=== PATIENT | female | born 1965 | race Caucasian/White ===

== ENCOUNTER 2017-01-18 20:12 | Emergency (ER) | payer SELFPAY ==
[2017-01-18] MEDS ORDERED: Adenosine 6 MG/2 ML VIAL ONE (20:22)
[2017-01-18] MEDS ORDERED: Metoprolol Tartrate 5 MG/5 ML VIAL ONE (20:24)
--- NOTE | 2017-01-18 20:45 | RAD ---
CHEST ONE VIEW 01/18/17 HISTORY: Chest pain. COMPARISON: Chest one view 02/11/16. FINDINGS: The lungs are clear. No pneumothorax or effusion. The cardiac silhouette and mediastinal contours are of normal limits. IMPRESSION: No significant change. POS: [facility]
[2017-01-18 21:10] LABS: Anion Gap 21 mmol/L (10-20); BUN (Urea Nitrogen) 13 mg/dL (9.8-20.1); Calc. Creatinine Clearance 0 mL/min (70-130); Calcium 9.6 mg/dL (7.8-10.44); Carbon Dioxide 20 mmol/L (22-29); Chloride 103 mmol/L (98-107); Estimated GFR-MDRD Greater than 90; Glucose 146 mg/dL (70-105); Potassium 3.6 mmol/L (3.5-5.1); Sodium 140 mmol/L (136-145)
[2017-01-18 21:13] LABS: #Basophils 0.2 thou/uL (0.0-0.2); #Eosinphils 0.5 thou/uL (0.0-0.7); #Lymphocytes 4.9 thou/uL (1.20-3.40); #Monocytes 1.1 thou/uL (0.11-0.59); #Neutrophils 4.5 thou/uL (1.40-6.50); %Basophils 1.6 % (0.0-1.0); %Eosinophils 4.6 % (0.0-10.0); %Monocytes 9.5 % (0.0-10.0); %Neutrophils 40.3 % (42.0-75.0); Hemoglobin 12.8 g/dL (12.0-16.0); Mean Corpuscular HGB CONC 35.2 g/dL (32.0-36.0); Mean Corpuscular Hemoglobin 30.4 pg (27.0-31.0); Mean Corpuscular Volume 86.4 fl (81.0-99.0); Mean Platelet Volume 8.8 fL (7.4-10.4); Platelet Count 215 thou/uL (130-400); RBC Distribution Width 12.9 % (11.5-14.5); Red Blood Cell (RBC) Count 4.21 mill/uL (4.20-5.40); White Blood Cell (WBC) Count 11.2 thou/uL (4.8-10.8)
[2017-01-18 21:18] LABS: CKMB 0.9 ng/mL (0-6.6); Troponin I Less than 0.010 ng/mL (< 0.028)
[2017-01-18] MEDS ORDERED: Fentanyl 100 MCG/2 ML VIAL ONE (23:20)
== END 2017-01-18 21:40 | disposition home or self-care (01) ==
LOC: MADERS 20:12
DX: I47.1 Supraventricular tachycardia (principal); E11.9 Type 2 diabetes mellitus without complications; I10 Essential (primary) hypertension; Z79.84 Long term (current) use of oral hypoglycemic drugs
CPT/HCPCS: 36415; 36416; 71010; 80048; 82553; 83880; 84484; 85025; 85379; 93005; 94760; 96374; J0153; J3010

== ENCOUNTER 2017-02-20 04:04 | Emergency (ER) | payer SELFPAY ==
[2017-02-20] MEDS ORDERED: Adenosine 6 MG/2 ML VIAL ONE (04:27)
[2017-02-20] MEDS ORDERED: Aspirin 325 MG TAB ONE (04:48)
[2017-02-20 04:56] LABS: INR-International Normal Ratio 0.9; PTT 29.4 SEC (22.9-36.1); Prothrombin Time 12.3 SEC (12.0-14.7)
[2017-02-20 05:08] LABS: Mean Corpuscular Hemoglobin 29.1 pg (27.0-31.0); Mean Corpuscular Volume 88.2 fl (81.0-99.0); Mean Platelet Volume 8.9 fL (7.4-10.4); Platelet Count 259 thou/uL (130-400); RBC Distribution Width 13.4 % (11.5-14.5); Red Blood Cell (RBC) Count 4.82 mill/uL (4.20-5.40)
[2017-02-20 05:09] LABS: ALT (SGPT) 48 U/L (8-55); AST (SGOT) 42 U/L (5-34); Albumin 4.2 g/dL (3.5-5.0); Alkaline Phosphatase 64 U/L (40-150); Anion Gap 21 mmol/L (10-20); BUN (Urea Nitrogen) 13 mg/dL (9.8-20.1); Bilirubin, Total 0.6 mg/dL (0.2-1.2); CK (CPK) 124 U/L (29-168); CKMB 1.2 ng/mL (0-6.6); Calc. Creatinine Clearance 0 mL/min (70-130); Calcium 9.6 mg/dL (7.8-10.44); Carbon Dioxide 19 mmol/L (22-29); Chloride 101 mmol/L (98-107); Estimated GFR-MDRD 69; Globulin 5.1 g/dL (2.4-3.5); Glucose 355 mg/dL (70-105); MDiff Complete? YES; Potassium 3.8 mmol/L (3.5-5.1); Protein, Total 9.3 g/dL (6.0-8.3); Sodium 137 mmol/L (136-145); Troponin I Less than 0.010 ng/mL (< 0.028)
[2017-02-20] MEDS ORDERED: Insulin Regular 300 UNITS/3 ML VIAL ONE (05:20)
[2017-02-20] MEDS ORDERED: Sodium Chloride 0.9% 1,000 ML BAG ONE (07:14)
--- NOTE | 2017-02-20 07:53 | RAD ---
PORTABLE CHEST 1 VIEW: DATE: 02/20/17. TIME: 4:37 a.m. HISTORY: Chest pain. FINDINGS: Comparison is made with the exam of 01/18/17. The heart size is normal. No focal areas of consolidation, pneumothorax, or pleural effusions are se en. IMPRESSION: No acute process. POS: [facility]
== END 2017-02-20 06:20 | disposition home or self-care (01) ==
LOC: MADERS 04:04
DX: I47.1 Supraventricular tachycardia (principal); E11.9 Type 2 diabetes mellitus without complications; F32.9 Major depressive disorder, single episode, unspecified; I10 Essential (primary) hypertension; Z79.84 Long term (current) use of oral hypoglycemic drugs; Z79.899 Other long term (current) drug therapy
CPT/HCPCS: 71010; 80053; 82553; 83880; 84484; 85025; 85610; 85730; 93005; 94760; 96374; 96375; J0153; J1815; J7050

== ENCOUNTER 2017-03-09 11:33 | Emergency (ER) | payer SELFPAY ==
[~2017-03-09 11:33] MED LIST: Sodium Chloride 0.9% 1,000 ML BAG ONE
[2017-03-09] MEDS ORDERED: Adenosine 6 MG/2 ML VIAL ONE ×2 (11:48)
[2017-03-09] MEDS ORDERED: Metoprolol Tartrate 5 MG/5 ML VIAL ONE (12:04)
[2017-03-09 12:27] LABS: Anion Gap 21 mmol/L (10-20); BUN (Urea Nitrogen) 17 mg/dL (9.8-20.1); Calc. Creatinine Clearance 0 mL/min (70-130); Calcium 9.6 mg/dL (7.8-10.44); Carbon Dioxide 18 mmol/L (22-29); Chloride 99 mmol/L (98-107); Estimated GFR-MDRD 72; Glucose 328 mg/dL (70-105); Magnesium 1.9 mg/dL (1.6-2.6); Potassium 4.2 mmol/L (3.5-5.1); Sodium 134 mmol/L (136-145)
[2017-03-09 12:29] LABS: Hemoglobin 13.6 g/dL (12.0-16.0); Mean Corpuscular HGB CONC 32.6 g/dL (32.0-36.0); Mean Corpuscular Hemoglobin 28.5 pg (27.0-31.0); Mean Corpuscular Volume 87.5 fl (81.0-99.0); Mean Platelet Volume 8.5 fL (7.4-10.4); Platelet Count 238 thou/uL (130-400); RBC Distribution Width 13.5 % (11.5-14.5); Red Blood Cell (RBC) Count 4.78 mill/uL (4.20-5.40); White Blood Cell (WBC) Count 12.7 thou/uL (4.8-10.8)
[2017-03-09 12:30] LABS: Differential Comment HAIRY CELLS NOTED; Eosinophils 4 % (0-10); Lymphocytes 22 % (21-51); MDiff Complete? YES; Monocytes 4 % (0-10); Neutrophil 45 % (42-75); PLT Morphology Comment Appears Adequate; RBC Morphology Normal; Reactive Lymphocytes 25 % (0-10)
[2017-03-09] MEDS ORDERED: Mag-Al Plus 1200 MG/1200 MG/120 MG/30 ML UDCUP ONE (12:31)
[2017-03-09] MEDS ORDERED: Metoprolol Tartrate 50 MG TAB ONE (12:31)
[2017-03-09 13:12] LABS: CKMB 1.2 ng/mL (0-6.6); Troponin I Less than 0.010 ng/mL (< 0.028)
[2017-03-09 13:52] LABS: Bilirubin Negative (Negative); Blood, Urine Negative (Negative); Clarity Clear (Clear); Glucose, Urine (Dipstick) >=1000 mg/dL (Negative); Leukocyte Negative (Negative); Nitrite Negative (Negative); Protein, Urine (Dipstick) 100 mg/dL (Neg-Trace); Specific Gravity, Urine 1.015 (1.005-1.030); Urobilinogen 0.2 mg/dL (0.2-1.0); pH, Urine 6.5 (5.0-9.0)
[2017-03-09 14:01] LABS: Bacteria/HPF Rare-Few HPF (None Seen); RBC/HPF 0-3 HPF (0-3); WBC/HPF 0-3 HPF (0-3)
[2017-03-09 14:02] LABS: Hyaline Casts/LPF 0-3 HYALINE CAST LPF (0-3 Hyaline)
== END 2017-03-09 14:55 | disposition home or self-care (01) ==
LOC: MADERS 11:33
DX: I47.1 Supraventricular tachycardia (principal); I10 Essential (primary) hypertension; E11.9 Type 2 diabetes mellitus without complications; F32.9 Major depressive disorder, single episode, unspecified; F41.9 Anxiety disorder, unspecified
CPT/HCPCS: 80048; 81003; 81015; 82553; 83735; 83880; 84443; 84484; 85025; 93005; 96361; 96374; 96375; J0153; J7050